=== PATIENT | female | born 1995 | race Caucasian/White ===

== ENCOUNTER 2019-01-11 07:51 | Inpatient (IN) ==
[2019-01-11] MEDS ORDERED: Naloxone 0.4 MG/ML INJ IVP PRN (08:33)
[2019-01-11] MEDS ORDERED: Famotidine 20 MG/2 ML VIAL IVP PRN (08:33)
[2019-01-11] MEDS ORDERED: *HR* Nalbuphine 10 MG/ML AMPUL IVP PRN (08:33)
[2019-01-11] MEDS ORDERED: Metoclopramide 10 MG/2 ML VIAL IVP PRN (08:33)
[2019-01-11] MEDS ORDERED: Lidocaine 1% 20 ML MDV INFILT PRN (08:34)
[2019-01-11] MEDS ORDERED: Ondansetron 4 MG/2 ML VIAL IVP PRN (08:34)
[2019-01-11] MEDS ORDERED: Ringers Solution, Lactated 1,000 ML IVC SCH (08:45)
[2019-01-11 08:55] LABS: Basophils % 0.3 %; Eosinophils % 0.3 %; Hematocrit 28.8 % (35.3-44.9); Hemoglobin 8.9 g/dL (11.5-15.4); Immature Granulocytes % 0.5 % (0-4); Lymphocytes # 2.7 K/mcL (0.6-4.6); Lymphocytes % 27.4 %; Mean Corpuscular HGB Conc 30.9 g/dL (31.6-35.5); Mean Corpuscular Hemoglobin 24.9 pg (28.0-33.3); Mean Corpuscular Volume 80.7 fL (83.0-100.0); Mean Platelet Volume 11.4 fL (9.4-12.4); Monocytes # 0.8 K/mcL (0.0-1.3); Monocytes % 8.6 %; Neutrophils # 6.1 K/mcL (1.6-8.9); Platelet Count 312 K/mcL (140-400); Red Blood Count 3.57 M/mcL (3.82-4.97); Red Cell Distribution Width 14.3 % (11.5-14.5); Segmented Neutrophils % 62.9 %; White Blood Count 9.7 K/mcL (4.3-11.1)
[2019-01-11 09:09] LABS: Amphetamine Screen,Urine Negative ng/mL (Cutoff=1000); Barbiturate Screen,Urine Negative ng/mL (Cutoff=200); Benzodiazepines Screen,Urine Negative ng/mL (Cutoff=200); Cannabinoid Screen,Urine Negative ng/mL (Cutoff = 50); Cocaine Screen,Urine Negative ng/mL (Cutoff= 300); Opiate Screen,Urine Negative ng/mL (Cutoff=300); Phencyclidine Screen,Urine Negative ng/mL (Cutoff=25)
[2019-01-11] MEDS ORDERED: miSOPROStol 25 MCG TABLET PO PRN (09:16)
--- NOTE | 2019-01-11 09:43 | Anesthesia Evaluation PreOp ---
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: Denies Any Significant HX Other Medical History: Denies Any Significant HX, Other (anxiety/depression) Anesthesia History: No Prior Anesthetic Complications, Past Anesthesia : Yes (39wks, g1) Alcohol Use: none Drug use: none Medications and Allergies BuPROPion XL (24 HR) [Wellbutrin Xl] 1 tab PO PRN PRN 10/08/18 [History] Vit #108/Iron/FA [ One Tablet] 1 tab PO DAILY 10/08/18 [History] Ferrous Sulfate 325 mg PO DAILY 01/11/19 [History] Allergy/AdvReac Type Severity Reaction Status Date / Time No Known Allergies Allergy Verified 10/08/18 21:56 - Meds/Allergy Pre-op Review Medications Reviewed: Yes Allergies Reviewed: No Beta Blockers on Current Med List: No Anesthesia Results - Labs 01/11/19 08:30 Anesthesia Exam O2 Sat Height 1.63 m Height 1.63 m Weight 70.7 kg Weight 70.7 kg Height: 64 Weight: 70 - HEENT Pupil (Motor): Pupils equal Mallampati: II Teeth: Normal Oral Opening: Greater than 3 - DINKEY ENGINE FIRER/FIREMAN LOC: Oriented DINKEY ENGINE FIRER/FIREMAN Motor: Normal RUE, Normal LUE, Normal RLE, Normal LLE, Normal Face DINKEY ENGINE FIRER/FIREMAN Sensory: Normal: RUE, LUE, RLE, LLE, Face - Cardiac Rhythm: Regular Murmur: None JVD: No Carotid Bruit: No - Pulmonary Breath Sounds: bilateral Clear Respiratory Effort: Symmetrical Anesthesia Assess/Plan ASA Score: 2 Level of consciousness: Cooperative Anesthetic Plan: Epidural
[2019-01-11] MEDS ORDERED: Epidural Premix (fent/bupiv) 110 ML EP SCH (09:45)
[2019-01-11] MEDS ORDERED: Oxytocin 20 units/ LR 1000 mL 20 UNIT/1,000 ML BAG IVC SCH (15:30)
[2019-01-11] MEDS ORDERED: Ropivacaine/PF 0.2% 20 ML VIAL ONE (17:20)
[2019-01-11] MEDS ORDERED: *HR* FentaNYL (PF) 100 MCG/2 ML VIAL ONE (17:20)
--- NOTE | 2019-01-11 17:53 | Anesthesia Procedures ---
Date of Encounter: 01/11/19 Time of Encounter: 17:02 (procedure end time 5463) Procedures: Anesthesia - Epidural/Spinal Patient ID/Chart reviewed: Yes Patient examined: Yes OB Eval: Contractions: Non-stressed pattern Consent Obtained: Yes Supplemental Oxygen: None/Room Air Site Prep: Aseptic Technique Patient position: upright Local Anesthetic: Lidocaine 1% Amount of Local Anesthetic used: 2 Touhy Needle Gauge: 18 Touhy Needle Depth (cm): 5 Catheter Depth at Skin (cm): 10 Test Dose (1.5% Lido + Epi): Volume given (mls): 3 Test Dose Result: Negative Loading Dose: Fentanyl (mcg): 100 Loading Dose: Other: 5ml 0.2% ropivicaine Loading Dose Administered: Thru Touhy Needle Infusion Med: 0.125% Bupivacaine w/ 2 mcg/ml Fentanyl Infusion Rate (mls/hr): [address]: Tegaderm Interspace Used: L3-L4 Loss of Resistance (YESSENIA): Yes Blood: No CSF: No Paresthesia: No Procedure: Strict asepsis, L3-4 x 1 attempt with one redirection. Good YESSENIA, bolus through needle, test dose through catheter. Tolerated well, FHR unchanged. See nurses notes for VS
--- NOTE | 2019-01-11 19:41 | OB/GYN History & Physical ---
Date of Encounter: 01/11/19 Time of Encounter: 19:39 Assessment and Plan (1) 39 weeks gestation of Current visit: Yes Status: Acute 23 yo female present for induction of labor. Will give Cytotec, expect . History of Present Illness Chief complaint: Here for induction HPI: Ms. Crespo is a 23 year old female presents for induction of labor. On arrival she reports +GFM, no fb or lof. Past Med Surg Social Fam HX - Past Medical History Source: patient, old records reviewed Medical history: no medical history Psychiatric history: anxiety - Past Surgical History Surgical History: no surgical history - Social History Smoking Status: Never smoker Smokeless Tobacco Status: No Alcohol use: none Drug use: none - Family History Mother Living Status: Still Living Hx Family Cardiac Disorders: No Hx Family Respiratory Disorders: No Hx Family Cancer: No Hx Family GI Disorders: No Hx Family Genitourinary Disorders: No Hx Family Endocrine Disorder: No Hx Family Musculoskeletal Disorders: No Hx Family Neuromuscular Disorders: No Hx Family Neurologic Disorders: No Hx Family HEENT Disorders: No Hx Family Autoimmune Disorders: No Hx Family Reproductive Disorders: No Hx Family Psychosocial Disorders: No Hx Family Medical Disorders: No Obstetrical History - Pregnancies : 1 Medications and Allergies BuPROPion XL (24 HR) [Wellbutrin Xl] 1 tab PO PRN PRN 10/08/18 [History] Vit #108/Iron/FA [ One Tablet] 1 tab PO DAILY 10/08/18 [History] Ferrous Sulfate 325 mg PO DAILY 01/11/19 [History] Allergy/AdvReac Type Severity Reaction Status Date / Time No Known Allergies Allergy Verified 10/08/18 21:56 Exam - Constitutional Constitutional: well developed - HEENT HEENT: EOMI, PERRL - Neck Neck exam: full ROM - Lungs Respiratory exam: CTAB - Cardiovascular Cardiovascular exam: RRR - Abdomen Abdomen: Present: gravid - Extremities Extremities exam: full ROM Deep Tendon Reflex Grade: 2+ Normal - Cervix Dilation: 2 Effacement: 80 Station: -2 - Uterus Uterus exam: Present: enlarged Results Result Diagrams: 01/11/19 08:30 Abnormal lab results RBC 3.57 M/mcL (3.82-4.97) L 01/11/19 08:30 Hgb 8.9 g/dL (11.5-15.4) L 01/11/19 08:30 Hct 28.8 % (35.3-44.9) L 01/11/19 08:30 MCV 80.7 fL (83.0-100.0) L 01/11/19 08:30 MCH 24.9 pg (28.0-33.3) L 01/11/19 08:30 MCHC 30.9 g/dL (31.6-35.5) L 01/11/19 08:30 All other labs normal. - VTE Reasons for not Prescribing Prophylaxis: Treatment not Indicated - Low risk for VTE
--- NOTE | 2019-01-11 19:46 | OB Labor Progress Note ---
Date of Encounter: 01/11/19 Time of Encounter: 14:25 Labor Progress Note - Subjective Subjective: Pt getting more uncomfortable. + gfm - Cervix Cervix: 3/80/-2 - Heart Tones Heart Tones: RNST - Plan Plan: Expect .
--- NOTE | 2019-01-12 03:37 | OB/GYN Procedure Note ---
Delivery - Delivery Date: 01/12/19 Provider: Mateo Thorne Intrapartum events: none Delivery induction: misoprostol Delivery augmentation: rupture of membranes, pitocin Delivery monitor: external FHT, internal uterine Anesthesia: epidural Quantitated Blood Loss: 300 - Infant (s) A Delivery Date: 01/12/19 Delivery Time: 02:49 Presentation: vertex Position: SHARI Route of delivery: vacuum extraction Gender: Female Viability: Viable Pounds: 7 Ounces: 0 at 1 minute: 7 at 5 mins: 9 Shoulder Dystocia: not encountered Specimens collected: cord blood Placenta: spontaneous Cord: 3 umbilical vessels - Repair Laceration Description: Periurethral, Perineal - 1st Degree - Complications Delivery complications: none - Disposition Mom disposition: stable in LDR disposition: stable in LDR - Comments Comments: Patient reached complete dilatation +3 station 7 recurrent late decelerations however side. [id number]-[id number] variability. Did discuss with patient options decision made to attempt vacuum extraction. Vacuum was applied at posterior station and with excellent maternal effort pressures taken up to 550 mmHg and infant was delivered approximately 50 seconds. was delivered from left occiput anterior presentation. With delivery of the shoulders without incident. Oropharynx nasopharynx were suctioned of clear fluid. Was delivered three- vessel cord. weight was found to be 7 pounds apgars of 7 at 1 minute and 9 at 5 minutes there was a right periurethral laceration that was superficial this was repaired with 3 interrupted 3-0 vicryl sutures. there was a first- degree labial laceration posteriorly that was repaired with 3-0 vicryl. estimated blood loss 300 ml all sponge counts counts are correct
[2019-01-12] MEDS ORDERED: Measles/Mumps/Rubella Vacc 0.5 ML VIAL SQ PRN (06:46)
[2019-01-12] MEDS ORDERED: Rho Immune Globulin 1,500 UNIT SYRINGE IM PRN (06:46)
[2019-01-12] MEDS ORDERED: BuPROPion XL (24 HR) 150 MG TABLET PO PRN (06:46)
[2019-01-12] MEDS ORDERED: Oxytocin 20 units/ LR 1000 mL 20 UNIT/1,000 ML BAG IVC ONE (06:46)
[2019-01-12] MEDS ORDERED: Lanolin 7 G OINT...G. TP PRN (07:42)
[2019-01-12] MEDS ORDERED: Benzocaine/Menthol 56 GM AEROSOL SPRAY TP PRN (07:43)
[2019-01-12] MEDS ORDERED: Benzocaine/Menthol 56 GM AEROSOL SPRAY TP ONE (07:45)
[2019-01-12] MEDS: Ibuprofen 600 MG TABLET PO PRN ×2 (07:50→16:02)
[2019-01-12] MEDS: Prenatal Vit/FA 1 EACH TABLET PO SCH (07:50)
[2019-01-12] MEDS: Acetaminophen 325 MG TABLET PO PRN ×2 (13:18→19:34)
[2019-01-13] MEDS: Ibuprofen 600 MG TABLET PO PRN (00:38)
[2019-01-13 07:04] LABS: Basophils % 0.1 %; Eosinophils # 0.1 K/mcL (0.0-0.6); Eosinophils % 0.9 %; Hematocrit 22.1 % (35.3-44.9); Immature Granulocytes % 0.7 % (0-4); Mean Corpuscular HGB Conc 30.8 g/dL (31.6-35.5); Mean Corpuscular Volume 81.3 fL (83.0-100.0); Mean Platelet Volume 11.7 fL (9.4-12.4); Monocytes # 0.9 K/mcL (0.0-1.3); Neutrophils # 9.3 K/mcL (1.6-8.9); Platelet Count 240 K/mcL (140-400); Red Blood Count 2.72 M/mcL (3.82-4.97); Red Cell Distribution Width 14.6 % (11.5-14.5); Segmented Neutrophils % 69.3 %; White Blood Count 13.4 K/mcL (4.3-11.1)
[2019-01-13 07:05] LABS: Hemoglobin 6.8 g/dL (11.5-15.4)
[2019-01-13 07:35] VITALS: BP 105/47
--- NOTE | 2019-01-13 08:02 | Discharge Summary ---
Date of Encounter: 01/13/19 Time of Encounter: 07:59 - Discharge Diagnosis (1) Vaginal delivery Priority: Primary Status: Acute Comments: Continue routine care discharge home today follow up with Dr. Thorne in 4-6 weeks (2) anemia Priority: Secondary Status: Acute Comments: Continue Ferrous sulfate BID (3) Breast feeding status of mother Priority: Secondary Status: Acute Comments: support prn - Discharge Medications Prescriptions: New Ferrous Sulfate 325 mg PO BID #60 tablet Ibuprofen [Motrin] 600 mg PO Q6HR PRN #60 tablet PRN Reason: Cramping BuPROPion [Wellbutrin] 150 mg PO BID tablet Benzocaine/Menthol Winkelman [Dermoplast Winkelman] 1 appl TP QID PRN aerosol PRN Reason: See Comments Docusate [Colace] 100 mg PO BID capsule Lanolin [Lansinoh] 1 appl TP Q4HR PRN oint...g. PRN Reason: Breast Feeding Continued Vit #108/Iron/FA [ One Tablet] 1 tab PO DAILY BuPROPion XL (24 HR) [Wellbutrin Xl] 1 tab PO PRN PRN PRN Reason: Anxiety Ferrous Sulfate 325 mg PO DAILY Home Medications: BuPROPion XL (24 HR) [Wellbutrin Xl] 1 tab PO PRN PRN 10/08/18 [History] Vit #108/Iron/FA [ One Tablet] 1 tab PO DAILY 10/08/18 [History] Ferrous Sulfate 325 mg PO DAILY 01/11/19 [History] Benzocaine/Menthol Winkelman [Dermoplast Winkelman] 1 appl TP QID PRN aerosol 01/13/19 [Rx] BuPROPion [Wellbutrin] 150 mg PO BID tablet 01/13/19 [Rx] Docusate [Colace] 100 mg PO BID capsule 01/13/19 [Rx] Ferrous Sulfate 325 mg PO BID #60 tablet 01/13/19 [Rx] Ibuprofen [Motrin] 600 mg PO Q6HR PRN #60 tablet 01/13/19 [Rx] Lanolin [Lansinoh] 1 appl TP Q4HR PRN oint...g. 01/13/19 [Rx] Allergies/Adverse Reactions: Allergy/AdvReac Type Severity Reaction Status Date / Time No Known Allergies Allergy Verified 10/08/18 21:56 Data Procedures and tests throughout hospitalization: Laboratory Tests 01/11/19 01/11/19 01/12/19 08:30 08:39 03:47 WBC 9.7 RBC 3.57 L Hgb 8.9 L Hct 28.8 L MCV 80.7 L MCH 24.9 L MCHC 30.9 L RDW 14.3 Plt Count 312 MPV 11.4 Immature Gran % 0.5 Seg Neutrophils % 62.9 Lymphocytes % 27.4 Monocytes % 8.6 Eosinophils % 0.3 Basophils % 0.3 Neutrophils # 6.1 Lymphocytes # 2.7 Monocytes # 0.8 Eosinophils # 0.0 Basophils # 0.0 Urine Opiates Screen Negative Ur Buprenorphine Scrn Negative Ur Barbiturates Screen Negative Ur Phencyclidine Scrn Negative Ur Amphetamines Screen Negative U Benzodiazepines Scrn Negative Urine Cocaine Screen Negative U Marijuana (THC) Screen Negative Ur Drug Screen Interp See Below Screen NEGATIVE Baby's Blood Type A RH POSITIVE Mother's Blood Type A RH NEGATIVE Rhogam Indicated YES Rhogam Req for Mother 1 01/13/19 06:15 WBC 13.4 H RBC 2.72 L Hgb 6.8 L D Hct 22.1 L MCV 81.3 L MCH 25.0 L MCHC 30.8 L RDW 14.6 H Plt Count 240 MPV 11.7 Immature Gran % 0.7 Seg Neutrophils % 69.3 Lymphocytes % 22.0 Monocytes % 7.0 Eosinophils % 0.9 Basophils % 0.1 Neutrophils # 9.3 H Lymphocytes # 3.0 Monocytes # 0.9 Eosinophils # 0.1 Basophils # 0.0 Urine Opiates Screen Ur Buprenorphine Scrn Ur Barbiturates Screen Ur Phencyclidine Scrn Ur Amphetamines Screen U Benzodiazepines Scrn Urine Cocaine Screen U Marijuana (THC) Screen Ur Drug Screen Interp Screen Baby's Blood Type Mother's Blood Type Rhogam Indicated Rhogam Req for Mother Labs on day of discharge: Labs from last 24 hours 01/13/19 01/12/19 06:15 03:47 WBC 13.4 H RBC 2.72 L Hgb 6.8 L D Hct 22.1 L MCV 81.3 L MCH 25.0 L MCHC 30.8 L RDW 14.6 H Plt Count 240 MPV 11.7 Immature Gran % 0.7 Seg Neutrophils % 69.3 Lymphocytes % 22.0 Monocytes % 7.0 Eosinophils % 0.9 Basophils % 0.1 Neutrophils # 9.3 H Lymphocytes # 3.0 Monocytes # 0.9 Eosinophils # 0.1 Basophils # 0.0 Screen NEGATIVE Baby's Blood Type A RH POSITIVE Mother's Blood Type A RH NEGATIVE Rhogam Indicated YES Rhogam Req for Mother 1 Date of admission: 01/11/19 07:51 Primary care physician: Deepali Bledsoe CNP Consults: 01/12/19 06:46 Consult to Inside Steward/Stewardess [CONS] Routine Comment: Vaginal delivery, consult needed Discharging clinician: Kendal Cid Anticipated date of discharge: 01/13/19 - Patient Status Disposition: Home, Self-Care Condition: Good Functional capacity at discharge: independent ambulation - Discharge Instructions Follow Up With: Deepali Bledsoe CNP [Primary Care Provider] - Mateo Thorne MD [Partnered Physician] - - Diet and Activity Activity: increase activity as tolerated Diet: regular diet Hospital Course Reason for admission: induction of labor Delivery: Episiotomy: none Other procedures: none complications: none Discharge diagnosis: IUP at term delivered [place] baby: female (breast feeding) Time Attestation: Total time spent providing and/or coordinating discharge services: Time Spent: Less than 30 minutes Exam - Constitutional Vitals: Temp Pulse Resp BP Pulse Ox 98.2 F 85 16 105/47 99 01/13/19 07:34 01/13/19 07:34 01/13/19 07:34 01/13/19 07:34 01/13/19 07:34 General appearance IM: A&O X 3, pleasant, answers questions appropriately - Respiratory Respiratory exam: Present: CTAB - Cardiovascular Cardiovascular exam IM: Present: RRR, +S1, +S2 - GI/Abdominal GI/Abdominal exam IM: normal bowel sounds - Uterine Tone: Firm Uterus Position: At Umbilicus, Midline - Extremities Exam Extremities exam IM: Present: full ROM, normal capillary refill - Neurological Exam Neurological exam: alert, oriented X3, reflexes normal
[2019-01-13] MEDS: Oxytocin 20 units/ LR 1000 mL 20 UNIT/1,000 ML BAG IVC SCH (09:01)
[2019-01-13] MEDS: Prenatal Vit/FA 1 EACH TABLET PO SCH (09:07)
== END 2019-01-13 09:26 | disposition home or self-care (01) | DRG 807 ==
LOC: 1NENULAB 07:51 → 1NENUOBS 01-12 06:35
PROVIDERS: ADMIT Obstetrics & Gynecology; ATTEND Obstetrics & Gynecology

== ENCOUNTER 2020-12-19 22:14 | Observation (INO) ==
[2020-12-19] MEDS ORDERED: Acyclovir 500 MG in D5% in Water 100 ML IVPB ONE (23:00)
[2020-12-19] MEDS ORDERED: cefTRIAXone 2,000 MG in 0.9 % Sodium Chloride Mini Bag 100 ML IVPB ONE (23:03)
[2020-12-19 23:09] LABS: Hematocrit 42.9 % (35.3-44.9); Hemoglobin 14.3 g/dL (11.5-15.4); Mean Corpuscular HGB Conc 33.3 g/dL (31.6-35.5); Mean Corpuscular Hemoglobin 29.9 pg (28.0-33.3); Mean Corpuscular Volume 89.7 fL (83.0-100.0); Mean Platelet Volume 10.5 fL (9.4-12.4); Platelet Count 238 K/mcL (140-400); Red Blood Count 4.78 M/mcL (3.82-4.97); Red Cell Distribution Width 12.9 % (11.5-14.5); White Blood Count 10.5 K/mcL (4.3-11.1)
[2020-12-19 23:11] LABS: Amorphous Sediment,Urine Few per hpf (None-Few); Bilirubin,Urine Negative (Negative); Blood,Urine Large (Negative); Clarity,Urine Ex.Turbid (Clear); Color,Urine Yellow (Yellow); Glucose,Urine (UA) Normal (Normal); Ketones,Urine 10 mg/dL (Negative); Leukocyte Esterase,Urine Large (Negative); Mucus,Urine Few per lpf (None-Few); Nitrite,Urine Negative (Negative); PH,Urine 7.5 pH Units (5.0-8.0); Protein,Urine 100 mg/dL (Neg-Trace); Specific Gravity,Urine 1.022 (1.010-1.025); Squamous Epithelial Cell,Urine Many per hpf (None-Few); Transitional Epi Cells,Urine Few per hpf (None-Few); Urobilinogen,Urine Normal (Normal); WBC,Urine TNTC per hpf (0-3)
[2020-12-19] MEDS ORDERED: 0.9 % Sodium Chloride 1,000 ML IVC ONE (23:19)
[2020-12-19 23:26] LABS: Amphetamine Screen,Urine Negative ng/mL (Cutoff=1000); Barbiturate Screen,Urine Negative ng/mL (Cutoff=200); Benzodiazepines Screen,Urine Negative ng/mL (Cutoff=200); Cannabinoid Screen,Urine Negative ng/mL (Cutoff = 50); Cocaine Screen,Urine Negative ng/mL (Cutoff= 300); Opiate Screen,Urine Negative ng/mL (Cutoff=300); Phencyclidine Screen,Urine Negative ng/mL (Cutoff=25)
[2020-12-19 23:29] LABS: Alanine Aminotransferase 10 Units/L (7-52); Albumin 4.7 g/dL (3.5-5.7); Albumin/Globulin Ratio 1.6 (1.1-2.2); Alkaline Phosphatase 53 Units/L (34-104); Aspartate Amino Transferase 13 Units/L (13-39); Bilirubin,Direct 0.1 mg/dL (0.0-0.2); Bilirubin,Indirect 0.5 mg/dL (0.0-1.0); Bilirubin,Total 0.6 mg/dL (0.3-1.0); Blood Urea Nitrogen 11 mg/dL (6-20); Calcium 9.6 mg/dL (8.6-10.3); Carbon Dioxide 24 mEq/L (23-29); Chloride 104 mEq/L (98-107); Glucose 126 mg/dL (70-105); Osmolality,Calculated 287 (280-300); Potassium 4.1 mEq/L (3.5-5.1); Sodium 138 mEq/L (136-145); Total Protein 7.7 g/dL (6.4-8.9)
[2020-12-19 23:34] LABS: BUN/Creatinine Ratio 12 (6-26); eGFR For African Americans > 60 (> 60); eGFR For Non-African Americans > 60 (> 60)
[2020-12-19 23:37] LABS: Troponin I < 0.03 ng/mL (< 0.04)
[2020-12-20 00:54] LABS: Adenovirus Not Detected (Not Detect); Coronavirus 229E Not Detected (Not Detect); Coronavirus HKU1 Not Detected (Not Detect); Coronavirus NL63 Not Detected (Not Detect)
[2020-12-20 00:55] LABS: Bordetella Pertussis Not Detected (Not Detect); Chlamydophila pneumoniae Not Detected (Not Detect); Coronavirus OC43 DETECTED (Not Detect); Human Metapneumovirus Not Detected (Not Detect); Human Rhinovirus/Enterovirus Not Detected (Not Detect); Influenza A Subtype 2009 H1 Not Detected (Not Detect); Influenza B Not Detected (Not Detect); Mycoplasma pneumoniae Not Detected (Not Detect); Parainfluenza Virus 1 Not Detected (Not Detect); Parainfluenza Virus 2 Not Detected (Not Detect); Parainfluenza Virus 3 Not Detected (Not Detect); Parainfluenza Virus 4 Not Detected (Not Detect); Respiratory Syncytial Virus Not Detected (Not Detect); SARS-CoV-2 Not Detected (Not Detect)
[2020-12-20] MEDS ORDERED: Acetaminophen 325 MG TABLET PO PRN (03:16)
[2020-12-20] MEDS ORDERED: Naloxone 0.4 MG/ML INJ IVP PRN (03:16)
[2020-12-20] MEDS: 0.9 % Sodium Chloride 1,000 ML IVC SCH ×2 (05:29→19:29)
[2020-12-20] MEDS: Acyclovir 500 MG in D5% in Water 100 ML IVPB SCH ×2 (07:40→16:39)
[2020-12-20] MEDS ORDERED: *HR* OxyCODONE/APAP 5/325 TABLET PO PRN (13:20)
[2020-12-20 14:20] LABS: Red Blood Cell,CSF < 2000 RBC/mcL
[2020-12-20 14:48] LABS: Appearance,CSF Clear (Clear)
[2020-12-20 14:51] LABS: Glucose,CSF 69 mg/dL (40-70); Total Protein,CSF 26 mg/dL (15-45)
[2020-12-20] MEDS ORDERED: cefTRIAXone 1,000 MG in 0.9 % Sodium Chloride Mini Bag 100 ML IVPB SCH (22:00)
[2020-12-21 10:46] VITALS: BP 120/77; PULSE 82; TEMP 97.8; O2SAT 98
== END 2020-12-21 14:25 | disposition home or self-care (01) ==
LOC: 3BNU 22:14 → EMEROOARM 22:14 → SUATTDRO 12-20 02:39 → 3BNU 12-20 03:14
PROVIDERS: ADMIT Family Medicine; ATTEND Internal Medicine